=== PATIENT | female | born 1935 | race Caucasian/White ===

== ENCOUNTER 2016-09-29 08:26 | Outpatient (CLI) | payer OTHER ==
[2016-09-29] MEDS ORDERED: BARIUM SULFATE 135 ML SUSP.RECON (E-Z-HD) PO ONE (08:56)
== END 2016-09-29 18:19 | disposition home or self-care (01) ==
LOC: SRD 08:26
PROVIDERS: ATTEND Specialist
DX: R13.10 Dysphagia, unspecified (principal)
CPT/HCPCS: 74220-TC

== ENCOUNTER → 2016-10-04 | Outpatient (CLI) | payer OTHER ==
[~2016-10-04] MED LIST: ALEN10TA6 PO; AMOX-426 PO; CALC-1094 PO; CYAN100067 PO; L.RH1CAP PO; LEVO25TA7 PO; LIP10 PO; LORA-259 PO; VITD2000 PO
[2016-10-04 15:04] LABS: BASOPHILS # (AUTO) 0.1 K/uL (0.0-0.2); BASOPHILS % (AUTO) 0.7 % (0.0-2.0); EOSINOPHILS # (AUTO) 0.1 K/uL (0.0-0.4); EOSINOPHILS % (AUTO) 1.3 % (0.0-4.0); HEMATOCRIT 42.4 % (36-48); HEMOGLOBIN 14.1 g/dL (12.0-16.0); LYMPHOCYTES # (AUTO) 2.1 K/uL (1.0-5.5); LYMPHOCYTES % (AUTO) 24.6 % (20.5-51.5); MEAN CORPUSCULAR HEMOGLOBIN 32 pg (27-31); MEAN CORPUSCULAR HGB CONC 33 % (32-36); MEAN CORPUSCULAR VOLUME 96 fL (79.0-98.0); MONOCYTES # (AUTO) 0.6 K/uL (0.0-1.0); NEUTROPHILS # (AUTO) 5.7 K/uL (1.8-7.7); NEUTROPHILS % (AUTO) 66.4 % (40.0-70.0); PLATELET COUNT (AUTO) 222 K/uL (130-430); RED BLOOD CELL COUNT(AUTO) 4.41 MIL/uL (4.2-6.2); RED CELL DISTRIBUTION WIDTH 13.6 % (9.0-15.0); WHITE BLOOD COUNT (AUTO) 8.6 K/uL (4.8-10.8)
[2016-10-04 15:08] LABS: BILIRUBIN,URINE NEGATIVE (NEGATIVE); BLOOD, URINE NEGATIVE (NEGATIVE); CLARITY/URINE CLEAR (CLEAR); COLOR,URINE YELLOW (YELLOW); GLUCOSE,URINE NEGATIVE (NEGATIVE); KETONES,URINE TRACE (NEGATIVE); LEUKOCYTE ESTERASE ,URINE TRACE (NEGATIVE); NITRITE, URINE NEGATIVE (NEGATIVE); PH,URINE 5.5 (5.0-8.0); PROTEIN URINE NEGATIVE (NEGATIVE); UROBILINOGEN,URINE 0.2 (0.2-1.0)
[2016-10-04 15:13] LABS: ANION GAP 7 (5-15); CALCIUM 8.8 mg/dL (8.4-11.0); CHLORIDE 103 mmol/L (98-107); CREATININE 1.07 mg/dL (0.55-1.30); GLUCOSE 115 mg/dL (70-99); POTASSIUM 3.8 mmol/L (3.5-5.1); SODIUM SERUM 140 mmol/L (136-145); UREA NITROGEN, BLOOD 18 mg/dL (8-21)
[2016-10-04 15:55] LABS: RBC,URINE NONE SEEN /HPF (0-3)
[2016-10-04 15:56] LABS: BACTERIA,URINE FEW /HPF (None Seen); MUCUS,URINE 1+ /LPF (None Seen)
== END | disposition home or self-care (01) ==
LOC: UNDOADMIN 13:19 → SMU 13:19 → SLB 13:20 → EDSTATUS 10-11 15:24
PROVIDERS: ATTEND Orthopaedic Surgery
DX: Z01.818 Encounter for other preprocedural examination (principal); R05 Cough; I70.90 Unspecified atherosclerosis
CPT/HCPCS: 36415; 71020-TC; 80048; 81000-TC; 85025; 87081; 87086

== ENCOUNTER 2016-10-08 10:14 | Inpatient (IN) | payer OTHER ==
[~2016-10-08] VITALS: Ht 165.1 cm; Wt 49.4 kg
[2016-10-08 10:23] VITALS: BP 157/79; PULSE 89; RESP 16; TEMP 98.2; O2SAT 99
[2016-10-08] MEDS ORDERED: NACL 0.9% 1,000 ML IV ONE ×3 (10:25→12:30)
--- NOTE | 2016-10-08 10:26 | NUR ---
Pt report received from VICKY Guillen. Pt c/o vomiting since 17:00 yesterday. Pt also c/o Right hip pain ad is scheduled for sx on 10/11/16.
--- NOTE | 2016-10-08 10:26 | NUR ---
PLACED IN BED 4
[2016-10-08] MEDS ORDERED: PROCHLORPERAZINE EDISYLATE 10 MG/2 ML VIAL IVP ONE (10:30)
[2016-10-08] MEDS ORDERED: KETOROLAC TROMETHAMINE 30 MG VIAL IVP ONE (10:30)
[2016-10-08] MEDS ORDERED: ONDANSETRON HCL 4 MG/2 ML VIAL IVP ONE (10:30)
--- NOTE | 2016-10-08 10:30 | NUR ---
# 20 gauge angiocath placed to LAC. Use of asceptic technique. Opsite placed over site. Blood return noted. Blood for lab drawn from site. Flushed with 10 cc of normal saline. No evidence of infiltration noted. Patient tolerated well.
--- NOTE | 2016-10-08 10:35 | NUR ---
Dr. Solo at bedside to assess pt.
[2016-10-08 11:09] LABS: BASOPHILS # (AUTO) 0.4 K/uL (0.0-0.2); BASOPHILS % (AUTO) 1.9 % (0.0-2.0); HEMOGLOBIN 13.9 g/dL (12.0-16.0); LYMPHOCYTES # (AUTO) 0.7 K/uL (1.0-5.5); LYMPHOCYTES % (AUTO) 3.5 % (20.5-51.5); MEAN CORPUSCULAR HEMOGLOBIN 31 pg (27-31); MEAN CORPUSCULAR HGB CONC 33 % (32-36); MEAN CORPUSCULAR VOLUME 95 fL (79.0-98.0); MONOCYTES # (AUTO) 0.9 K/uL (0.0-1.0); MONOCYTES % (AUTO) 4.9 % (1.7-9.3); NEUTROPHILS # (AUTO) 16.6 K/uL (1.8-7.7); NEUTROPHILS % (AUTO) 89.7 % (40.0-70.0); PLATELET COUNT (AUTO) 176 K/uL (130-430); RED BLOOD CELL COUNT(AUTO) 4.44 MIL/uL (4.2-6.2); RED CELL DISTRIBUTION WIDTH 13.3 % (9.0-15.0); WHITE BLOOD COUNT (AUTO) 18.6 K/uL (4.8-10.8)
[2016-10-08 11:16] LABS: ANION GAP 7 (5-15); CALCIUM 8.5 mg/dL (8.4-11.0); CHLORIDE 95 mmol/L (98-107); CREATININE 0.97 mg/dL (0.55-1.30); GLUCOSE 172 mg/dL (70-99); POTASSIUM 4.4 mmol/L (3.5-5.1); SODIUM SERUM 129 mmol/L (136-145); UREA NITROGEN, BLOOD 18 mg/dL (8-21)
[2016-10-08 11:21] LABS: ALANINE AMINOTRANSFERASE 23 U/L (12-78); ALBUMIN 3.8 g/dL (3.4-4.8); AMYLASE 113 U/L (0-100); ASPARTATE AMINOTRANSFERASE 34 U/L (10-37); LIPASE 117 U/L (73-393); TOTAL BILIRUBIN 1.3 mg/dL (0.0-1.0); TOTAL PROTEIN, SERUM 7.5 g/dL (6.4-8.3)
[2016-10-08 11:35] LABS: INR 1.1 (0.8-1.2); PROTHROMBIN TIME 11.9 SECS (9.5-12.5)
[2016-10-08] MEDS ORDERED: cefTRIAXone 1 GM IVPB PREMIX 50 ML IV ONE (12:30)
--- NOTE | 2016-10-08 12:30 | NUR ---
PT. OUT TO CT [facility]
[2016-10-08 13:03] LABS: BILIRUBIN,URINE NEGATIVE (NEGATIVE); CLARITY/URINE CLEAR (CLEAR); COLOR,URINE YELLOW (YELLOW); GLUCOSE,URINE NEGATIVE (NEGATIVE); KETONES,URINE TRACE (NEGATIVE); LEUKOCYTE ESTERASE ,URINE NEGATIVE (NEGATIVE); NITRITE, URINE NEGATIVE (NEGATIVE); PROTEIN URINE TRACE (NEGATIVE); UROBILINOGEN,URINE 0.2 (0.2-1.0)
[2016-10-08 13:06] LABS: BLOOD, URINE TRACE (NEGATIVE)
[2016-10-08 13:11] LABS: BACTERIA,URINE FEW /HPF (None Seen); RBC,URINE 0-3 /HPF (0-3); WBC,URINE 0-3 /HPF (0-3)
[2016-10-08 13:12] LABS: MUCUS,URINE 1+ /LPF (None Seen)
[2016-10-08] MEDS ORDERED: ONDANSETRON HCL 4 MG/2 ML VIAL IVP PRN (13:15)
[2016-10-08] MEDS ORDERED: ACETAMINOPHEN 325 MG TABLET PO PRN (13:15)
--- NOTE | 2016-10-08 13:15 | NUR ---
Patient will be admitted to care of DR. MONTEZ. Admitted to TELE unit. Will go to room 111A. Belongings list completed. Summary report printed. Report given to MONSTER PERRY.
--- NOTE | 2016-10-08 13:37 | NUR ---
ADMISSION NOTE Received patient from ER via gurney. Patient admitted with diagnosis of Sepsis. Patient is awake, alert, oriented X 4. VSS Patient oriented to hospital room, call light, toileting, pain management and safety-teach back done. Patient informed that Heidi will be nurse and that their room number is 111A. Personal belongings checked and Belongings List documented. Call light within reach.
[2016-10-08 13:42] VITALS: BP 130/55; PULSE 74; TEMP 98.4; O2SAT 100
--- NOTE | 2016-10-08 14:30 | NUR ---
RESTING IN BED AT THIS TIME. DENIES ANY PAIN OR DISCOMFORT. NO NAUSEA VOMITING NOTED.
[2016-10-08] MEDS ORDERED: ALEN10TA6 PO (14:49)
[2016-10-08] MEDS ORDERED: CALC-1094 PO (14:49)
[2016-10-08] MEDS ORDERED: VITD2000 PO (14:49)
[2016-10-08] MEDS ORDERED: LIP10 PO (14:49)
[2016-10-08] MEDS ORDERED: LEVO25TA7 PO (14:49)
[2016-10-08] MEDS ORDERED: CYAN100067 PO (14:49)
[2016-10-08] MEDS ORDERED: LORA-259 PO (14:49)
--- NOTE | 2016-10-08 15:11 | NUR ---
NS SECOND BOLUS OF NS RUNNING AT THIS TIME.
--- NOTE | 2016-10-08 15:54 | NUR ---
1430 Patient awake ,alert and oriented ambulatory. Patient noted to have hoarse voice from vomiting at home.Patient admitted for Vomiting and reaction to Tramadol and r/o SEPSIS.Iv on the left forearm infusing NS at 100 cc/hour. Site intact, no redness.
--- NOTE | 2016-10-08 16:00 | NUR ---
Patient assisted to the BR .Instructed to call the nurse when she need to assistance to the Bathroom.
[2016-10-08] MEDS: LEVOFLOXACIN 500 MG/D5W 100 ML IV SCH (16:03)
[2016-10-08] MEDS: NACL 0.9% 1,000 ML IV SCH ×2 (16:10→23:36)
[2016-10-08 16:50] VITALS: BP 131/62; PULSE 75; RESP 16; TEMP 98; O2SAT 94
--- NOTE | 2016-10-08 18:47 | NUR ---
Patient stable ,denies any discomfort at this time.
[2016-10-08] MEDS ORDERED: LORazepam 1 MG TABLET PO SCH (19:45)
--- NOTE | 2016-10-08 19:50 | NUR ---
PM SHIFT ASSESSMENT Received patient in bed, aox4, vital signs stable. Patient denies any hip pain at this time, denies any nausea or vomiting. States she lost her voice due to vomiting all yesterday. IV line to left ac intact and patent, IVF of NS infusing at 100 cc/hr. Plan of care discussed with patient, verbalized understanding, compliant, educated on fall and safety precautions, safety measures in place, oriented to use call light for nurse assistance, will continue to monitor.
[2016-10-08 20:00] VITALS: BP 136/63; PULSE 83; RESP 20; TEMP 99; O2SAT 95
[2016-10-08] MEDS: LACTOBACILLUS RHAMNOSUS GG 1 CAP CAPSULE PO SCH (20:35)
[2016-10-08] MEDS: DOCUSATE SODIUM 250 MG CAPSULE PO SCH (20:35)
[2016-10-08] MEDS: LACTULOSE 20 GM/30 ML UDC PO SCH (20:41)
[2016-10-08] MEDS ORDERED: FAMOTIDINE PF 20 MG/2 ML VIAL IVP SCH (21:00)
[2016-10-08] MEDS: LORazepam 1 MG TABLET PO SCH ×2 (21:00→21:53)
--- NOTE | 2016-10-08 21:00 | NUR ---
MD Dr. White made rounds, new orders given, will carry out.
--- NOTE | 2016-10-08 21:30 | NUR ---
RN ROUNDS Patient awake, due medications administered, IVF infusing. Ambulated to bathroom, steady gait noted, reoriented to use call light for nurse assistance, call light within reach, will monitor.
--- NOTE | 2016-10-08 22:02 | NUR ---
RN ROUNDS Patient awake, denies any pain at this time, Ativan 1 mg po given, educated on fall precautions, patient verbalized understanding, bed alarm on, safety measures in place, will continue to monitor.
--- NOTE | 2016-10-08 23:56 | NUR ---
RN ROUNDS Patient asleep, respirations even and unlabored, vitals stable. Bed alarm on, safety measures in place, call light within reach, will continue to monitor.
[2016-10-09 00:30] VITALS: BP 99/41; PULSE 77; RESP 16; TEMP 97.8; O2SAT 98
--- NOTE | 2016-10-09 02:09 | NUR ---
RN ROUNDS Patient asleep, respirations even and unlabored, IVF ongoing, safety measures in place, call light within reach, will continue to monitor.
--- NOTE | 2016-10-09 04:04 | NUR ---
RN ROUNDS Patient continues to sleep, respirations even and unlabored, remains on room air. Vitals stable. safety measures in place, call light within reach, will continue to monitor.
[2016-10-09 04:24] VITALS: BP 106/48; PULSE 78; RESP 17; TEMP 98; O2SAT 98
[2016-10-09] MEDS: LEVOTHYROXINE SODIUM 0.025 MG TABLET PO SCH (06:12)
--- NOTE | 2016-10-09 06:34 | NUR ---
RN ROUNDS Patient awake and in no distress, ambulated to bathroom with standby assistance, denies any pain at this time. Needs attended to. Patient refusing to wear SCDs. Bed alarm on, safety measures in place, will continue to monitor until report given to am nurse.
[2016-10-09 07:51] VITALS: BP 148/75; PULSE 64; RESP 18; TEMP 99; O2SAT 96
[2016-10-09] MEDS: DOCUSATE SODIUM 250 MG CAPSULE PO SCH ×2 (08:11→21:10)
[2016-10-09] MEDS: ATORVASTATIN 10 MG TABLET PO SCH (08:11)
[2016-10-09] MEDS: LACTOBACILLUS RHAMNOSUS GG 1 CAP CAPSULE PO SCH ×2 (08:11→21:10)
[2016-10-09] MEDS: CYANOCOBALAMIN 1000 mCg TABLET PO SCH (08:11)
[2016-10-09] MEDS: LACTULOSE 20 GM/30 ML UDC PO SCH ×3 (08:12→21:00)
--- NOTE | 2016-10-09 08:20 | NUR ---
Initial note and IV insertion A/O x 4, no SOB, no chest pain, c/o mild pain (2/10) at R hip, but refused to take pain med. Skin warm to touch, no skin breakdown. IV at L AC infiltrated, started a new IV at R hand with #22 x 1 attempt, good blood return, DC old IV from L AC, IV cath intact, patient tolerated whole procedure well. Continue NS @ 100 ml/hr via IV at R hand. Clear lungs sounds all lobes. Some dry cough without sputum. Active bowel sounds present all quadrants. +2 redial and pedal pulses without edema noted. Call light within reach, education provided, reenforce patient to use call light for any concern and question, or going to bathroom. Will continue to monitor patient. Addendum: 10/09/16 at 0948 by Mary Bowman RN pt refused to have scd's in place, educated pt on importance of scd use to prevent dvt, pt verbalized understanding but continues to refuse, charge nurse aware.
[2016-10-09] MEDS: CHOLECALCIFEROL (VITAMIN D3) 2,000 UNIT TABLET PO SCH (08:33)
[2016-10-09] MEDS: NACL 0.9% 1,000 ML IV SCH ×2 (09:59→21:07)
--- NOTE | 2016-10-09 10:15 | NUR ---
Round A/O x 4, no SOB, no chest pain, c/o mild pain (2/10) at R hip, but refused to take pain med. Skin warm to touch, no skin breakdown. IV at R hand with #22, patent, free of infiltration or infection. Continue NS @ 100 ml/hr via IV at R hand. Clear lungs sounds all lobes. Some dry cough without sputum. Active bowel sounds present all quadrants. No edema noted. Need one person assisted for ambulation. Call light within reach, education provided, reenforce patient to use call light for any concern and question, or going to bathroom. Will continue to monitor patient.
[2016-10-09 11:47] VITALS: BP 147/77; PULSE 78; RESP 19; TEMP 96.6; O2SAT 96
--- NOTE | 2016-10-09 12:15 | NUR ---
Round A/O x 4, no SOB, no chest pain, c/o mild pain (2/10) at R hip, still refused to take pain med. Skin warm to touch, no skin breakdown. IV at R hand with #22, patent, free of infiltration or infection. Continue NS @ 100 ml/hr via IV at R hand. Clear lungs sounds all lobes. No cough noted. Active bowel sounds present all quadrants. No edema noted. Need one person assisted for ambulation. Call light within reach, education provided, reenforce patient to use call light for any concern and question, or going to bathroom. Will continue to monitor patient.
[2016-10-09] MEDS: cefTRIAXone 1 GM IVPB PREMIX 50 ML IV SCH (12:40)
[2016-10-09] MEDS: LEVOFLOXACIN 500 MG/D5W 100 ML IV SCH (13:43)
--- NOTE | 2016-10-09 14:15 | NUR ---
Round A/O x 4, no SOB, no chest pain, c/o mild pain (2/10) at R hip, still refused to take pain med. Skin warm to touch, no skin breakdown. IV at R hand with #22, patent, free of infiltration or infection. Continue NS @ 100 ml/hr via IV at R hand. Rocephin IV was completed and now running Levaquin. Clear lungs sounds all lobes. No cough noted. Active bowel sounds present all quadrants. No edema noted. Need one person assisted for ambulation. Small BM noted. Call light within reach, education provided, reenforce patient to use call light for any concern and question, or going to bathroom. Will continue to monitor patient.
[2016-10-09 15:56] VITALS: BP 147/80; PULSE 86; RESP 19; TEMP 98.8; O2SAT 94
--- NOTE | 2016-10-09 18:15 | NUR ---
Closing note A/O x 4, no SOB, no chest pain, c/o mild pain (2/10) at R hip, still refused to take pain med. Skin warm to touch, no skin breakdown. IV at R hand with #22, patent, free of infiltration or infection. Continue NS @ 100 ml/hr via IV at R hand. Clear lungs sounds all lobes. No cough noted. Active bowel sounds present all quadrants. No edema noted. Frequent urination. Need one person assisted for ambulation. Small BM x 1 today. Call light within reach, education provided, reenforce patient to use call light for any concern and question, or going to bathroom. Will continue to monitor patient.
--- NOTE | 2016-10-09 19:20 | NUR ---
INITIAL NOTES: PT IS ALERT, AWAKE, ORIENTED X 4. WATCHING TV. NO PAIN. NO DISTRESS. VITAL SIGN WITH IN NORMAL LIMIT. IVF INFUSING WELL TO RIGHT FOREARM- INFUSING WELL. INSTRUCTED PT TO CALL FOR ASSISTANCE. CALL LIGHT IN REACH, SIDE RAILS UP. WILL MONITOR. Addendum: 10/09/16 at 2106 by Constantino Addison RN right hand iv site gauge 22- no infiltration
[2016-10-09 19:50] LABS: BASOPHILS % (AUTO) 0.5 % (0.0-2.0); EOSINOPHILS # (AUTO) 0.2 K/uL (0.0-0.4); EOSINOPHILS % (AUTO) 2.3 % (0.0-4.0); HEMATOCRIT 33.5 % (36-48); HEMOGLOBIN 11.2 g/dL (12.0-16.0); LYMPHOCYTES # (AUTO) 1.3 K/uL (1.0-5.5); LYMPHOCYTES % (AUTO) 14.2 % (20.5-51.5); MEAN CORPUSCULAR HEMOGLOBIN 32 pg (27-31); MEAN CORPUSCULAR HGB CONC 33 % (32-36); MEAN CORPUSCULAR VOLUME 96 fL (79.0-98.0); MONOCYTES # (AUTO) 0.7 K/uL (0.0-1.0); MONOCYTES % (AUTO) 8.1 % (1.7-9.3); NEUTROPHILS # (AUTO) 6.9 K/uL (1.8-7.7); NEUTROPHILS % (AUTO) 74.9 % (40.0-70.0); PLATELET COUNT (AUTO) 151 K/uL (130-430); RED BLOOD CELL COUNT(AUTO) 3.49 MIL/uL (4.2-6.2); WHITE BLOOD COUNT (AUTO) 9.1 K/uL (4.8-10.8)
[2016-10-09 19:54] LABS: ANION GAP 4 (5-15); CALCIUM 7.1 mg/dL (8.4-11.0); CHLORIDE 114 mmol/L (98-107); CREATININE 0.77 mg/dL (0.55-1.30); GLUCOSE 121 mg/dL (70-99); POTASSIUM 3.1 mmol/L (3.5-5.1); SODIUM SERUM 145 mmol/L (136-145); UREA NITROGEN, BLOOD 9 mg/dL (8-21)
[2016-10-09 20:10] VITALS: BP 162/80; PULSE 78; RESP 18; TEMP 97.5; O2SAT 97
--- NOTE | 2016-10-09 20:27 | NUR ---
received call from dr. pan mas is aware of consult. md will see the pt tomorrow.
[2016-10-09] MEDS: PANTOPRAZOLE SODIUM 40 MG/VIAL (PROTONIX) IVP SCH (21:10)
[2016-10-09] MEDS: LORazepam 1 MG TABLET PO SCH (22:12)
--- NOTE | 2016-10-09 22:17 | NUR ---
ROUND NOTES: PT IS DONE WITH WATCHING TV. ASSISTED TO BATHROOM. ATIVAN PO GIVEN. INSTRUCTED TO CALL. CALL LIGHT IN REACH. WILL MONITOR.
--- NOTE | 2016-10-10 | NUR ---
round notes: pt is sleeping. comfortable. no pain. not distress. no sob. call light in reach. will monitor.
[2016-10-10 00:15] VITALS: BP 145/71; PULSE 76; RESP 15; TEMP 97.9; O2SAT 96
--- NOTE | 2016-10-10 02:00 | NUR ---
round notes: pt is sleeping. comfortable. no pain no sob. call light in reach. will monitor.
--- NOTE | 2016-10-10 02:49 | NUR ---
PAGED PAGED MELIDA CARIAS ZOUHAIR AT [phone] SPOKE WITH KIEL.
--- NOTE | 2016-10-10 03:18 | NUR ---
2ND PAGE OUT TO HELDER PIZARRO AT [phone] SPOKE WITH KIEL.
--- NOTE | 2016-10-10 03:24 | NUR ---
spoke to dr. torres- report potassium level 3.1 and calcium 7.1. md order 40 meq k-dur x one dose. report also to md pt sbp 162. md order clonidine 0.1 mg q4hr prn for sbp > 160.
[2016-10-10] MEDS ORDERED: POTASSIUM CHLORIDE 20 MEQ TAB.PRT.SR PO ONE (03:30)
[2016-10-10] MEDS ORDERED: cloNIDine HCL 0.1 MG TABLET PO PRN (03:30)
--- NOTE | 2016-10-10 04:10 | NUR ---
pt iv site start to leak. start new iv site at left fore arm gauge 20- good blood return. done aseptically. pt tolerate well. needs attended. call light in reach. will monitor.
[2016-10-10 04:17] VITALS: BP 145/72; PULSE 87; RESP 15; TEMP 98.7; O2SAT 94
--- NOTE | 2016-10-10 06:00 | NUR ---
round notes: assisted pt to br. back to bed. steady gait. no complain of pain. am medication given. call light in reach. will monitor.
[2016-10-10] MEDS: LEVOTHYROXINE SODIUM 0.025 MG TABLET PO SCH (06:09)
[2016-10-10] MEDS: NACL 0.9% 1,000 ML IV SCH ×2 (06:09→16:48)
--- NOTE | 2016-10-10 06:55 | NUR ---
closing: pt is resting. no distress. no nausea and vomiting the whole shift. no complain of pain. ivf infusing well. stable. call light in reach, side rails up. will given bedside report to am nurse.
[2016-10-10 07:52] LABS: BASOPHILS % (AUTO) 0.6 % (0.0-2.0); EOSINOPHILS # (AUTO) 0.3 K/uL (0.0-0.4); EOSINOPHILS % (AUTO) 3.9 % (0.0-4.0); HEMATOCRIT 33.2 % (36-48); LYMPHOCYTES # (AUTO) 1.4 K/uL (1.0-5.5); LYMPHOCYTES % (AUTO) 18.5 % (20.5-51.5); MEAN CORPUSCULAR HEMOGLOBIN 32 pg (27-31); MEAN CORPUSCULAR HGB CONC 33 % (32-36); MEAN CORPUSCULAR VOLUME 96 fL (79.0-98.0); MONOCYTES # (AUTO) 0.6 K/uL (0.0-1.0); MONOCYTES % (AUTO) 8.7 % (1.7-9.3); NEUTROPHILS # (AUTO) 5.1 K/uL (1.8-7.7); NEUTROPHILS % (AUTO) 68.3 % (40.0-70.0); PLATELET COUNT (AUTO) 140 K/uL (130-430); RED BLOOD CELL COUNT(AUTO) 3.45 MIL/uL (4.2-6.2); RED CELL DISTRIBUTION WIDTH 13.5 % (9.0-15.0); WHITE BLOOD COUNT (AUTO) 7.4 K/uL (4.8-10.8)
[2016-10-10 08:00] VITALS: BP 158/81; PULSE 77; RESP 17; TEMP 97.4; O2SAT 97
--- NOTE | 2016-10-10 08:00 | NUR ---
Initial note A/O x 4, no SOB, no chest pain, denied pain at this time. Skin warm to touch, IV #20 at L FA, patent and free of infection or infiltration. Continue receiving NS @ 100 ml/hr. Breakfast provided. Clear lung sounds and positive bowel sounds all quadrants. +2 radial and pedal pulses, no edema noted. Call light within reach, risk for fall, frequent urination, one person assisted needed for ambulation/transferring. Education provided. Will continue to monitor patient.
[2016-10-10 08:28] LABS: ALANINE AMINOTRANSFERASE 26 U/L (12-78); ALBUMIN 2.7 g/dL (3.4-4.8); ANION GAP 7 (5-15); ASPARTATE AMINOTRANSFERASE 35 U/L (10-37); CALCIUM 7.4 mg/dL (8.4-11.0); CHLORIDE 112 mmol/L (98-107); CREATININE 0.76 mg/dL (0.55-1.30); GLUCOSE 88 mg/dL (70-99); POTASSIUM 3.8 mmol/L (3.5-5.1); SODIUM SERUM 144 mmol/L (136-145); TOTAL BILIRUBIN 0.6 mg/dL (0.0-1.0); TOTAL PROTEIN, SERUM 5.6 g/dL (6.4-8.3); UREA NITROGEN, BLOOD 8 mg/dL (8-21)
[2016-10-10] MEDS: LACTULOSE 20 GM/30 ML UDC PO SCH ×3 (09:00→22:05)
[2016-10-10] MEDS: PANTOPRAZOLE SODIUM 40 MG/VIAL (PROTONIX) IVP SCH ×2 (09:04→21:18)
--- NOTE | 2016-10-10 09:07 | NUR ---
MUCUS Pt c/o having a lot of secretions stuck in her throat, pt vomited x1, thick, white secretions, administered prn zofran as ordered. Dr White paged to notify him and see if he will give any new orders, awaiting call back. Addendum: 10/10/16 at 7405 by Mary Bowman RN Dr White gave new orders and made aware of patients condition.
--- NOTE | 2016-10-10 09:26 | NUR ---
Medication Reassessment Pt no longer feels nauseas, no vomiting noted, pt in stable condition, no s/s of distress or sob noted, pt has no c/o pain at this time, will continue to monitor pt for any changes.
[2016-10-10] MEDS ORDERED: METOCLOPRAMIDE HCL 10 MG/2 ML VIAL IVP PRN (09:30)
--- NOTE | 2016-10-10 09:45 | NUR ---
CONSULT SPOKE WITH JOHN FOR CDR. CURRY CAMILO ABOUT THROAT PAIN.
--- NOTE | 2016-10-10 10:00 | NUR ---
Round A/O x 4, no SOB, no chest pain, denied pain at this time. Poor appetite of breakfast to due vomiting earlier. Denied N/V at this time. was able to eat some Jell-o. Skin warm to touch, IV #20 at L FA, patent and free of infection or infiltration. Continue receiving NS @ 100 ml/hr. Clear lung sounds and positive bowel sounds all quadrants. +2 radial and pedal pulses, no edema noted. Call light within reach, risk for fall, frequent urination, needed urination every 30-60 minutes, one person assisted needed for ambulation/transferring. Education provided. Will continue to monitor patient.
[2016-10-10] MEDS ORDERED: IOHEXOL 100 ML IV ONE (11:22)
[2016-10-10] MEDS: ATORVASTATIN 10 MG TABLET PO SCH (11:23)
[2016-10-10] MEDS: LACTOBACILLUS RHAMNOSUS GG 1 CAP CAPSULE PO SCH ×2 (11:23→22:06)
[2016-10-10] MEDS: CHOLECALCIFEROL (VITAMIN D3) 2,000 UNIT TABLET PO SCH (11:24)
[2016-10-10] MEDS: DOCUSATE SODIUM 250 MG CAPSULE PO SCH ×2 (11:24→22:05)
[2016-10-10] MEDS: CYANOCOBALAMIN 1000 mCg TABLET PO SCH (11:24)
[2016-10-10 12:03] VITALS: BP 148/67; PULSE 81; RESP 18; TEMP 98.7; O2SAT 96
[2016-10-10 12:12] VITALS: Ht 165.1 cm; Wt 49.4 kg
[2016-10-10] MEDS: cefTRIAXone 1 GM IVPB PREMIX 50 ML IV SCH (12:20)
--- NOTE | 2016-10-10 12:20 | NUR ---
Round A/O x 4, no SOB, no chest pain, denied pain at this time. Fair appetite of lunch. Denied N/V at this time. Skin warm to touch, IV #20 at L FA, patent and free of infection or infiltration. Continue receiving NS @ 100 ml/hr. IV Rocephin given. No ASE. Clear lung sounds and positive bowel sounds all quadrants. +2 radial and pedal pulses, no edema noted. Call light within reach, risk for fall, frequent urination, needed urination every 30-60 minutes, one person assisted needed for ambulation/transferring. Education provided. Will continue to monitor patient.
[2016-10-10] MEDS: LEVOFLOXACIN 500 MG/D5W 100 ML IV SCH (13:35)
--- NOTE | 2016-10-10 14:20 | NUR ---
Round A/O x 4, no SOB, no chest pain, denied pain at this time. Denied N/V at this time. Skin warm to touch, IV #20 at L FA, patent and free of infection or infiltration. Continue receiving NS @ 100 ml/hr. IV Levaquin given. No ASE. Clear lung sounds and positive bowel sounds all quadrants. +2 radial and pedal pulses, no edema noted. Call light within reach, risk for fall, frequent urination, needed urination every 30-60 minutes, one person assisted needed for ambulation/transferring. Education provided. Will continue to monitor patient.
[2016-10-10 16:00] VITALS: BP 162/79; PULSE 96; RESP 18; TEMP 98.4; O2SAT 97
--- NOTE | 2016-10-10 16:00 | NUR ---
Round and IV reinsertion A/O x 4, no SOB, no chest pain, denied pain at this time. Denied N/V at this time. Skin warm to touch, noted IV at L FA infiltrated. Started a new IV at L FA with #20 x 2 attempts, DC old IV, IV catheter intact. Patient tolerated whole procedure well. Continue receiving NS @ 100 ml/hr. Clear lung sounds and positive bowel sounds all quadrants. +2 radial and pedal pulses, no edema noted. Call light within reach, risk for fall, frequent urination, needed urination every 30-60 minutes, one person assisted needed for ambulation/transferring. Education provided. Will continue to monitor patient.
--- NOTE | 2016-10-10 16:43 | NUR ---
CONSULT SWALLOW TIMOTHY LEFT FOR LYSSA (ST) [phone] @0099
--- NOTE | 2016-10-10 16:46 | NUR ---
CONSULT CONSULT ORDERED WITH DR. HOWARD FOR LARGE GOITER. SPOKE WITH
--- NOTE | 2016-10-10 17:26 | NUR ---
CONSULT PAGE TO CANCELL CONSULT.
--- NOTE | 2016-10-10 17:36 | NUR ---
CONSULT CALLED FOR CONSULT FOR DR. ECHEVERRIA FOR LARGE GOITER. SPOKE WITH ADARSH
--- NOTE | 2016-10-10 18:20 | NUR ---
Closing note A/O x 4, no SOB, no chest pain, c/o mild pain at R hip/back 2/10 at this time, but refused any pain med. Denied N/V at this time. Poor-fair appetite of dinner. Skin warm to touch, IV #20 at L FA, patent and free of infection or infiltration. Continue receiving NS @ 100 ml/hr. Clear lung sounds and positive bowel sounds all quadrants. +2 radial and pedal pulses, no edema noted. Call light within reach, risk for fall, frequent urination, needed urination every 30-60 minutes, one person assisted needed for ambulation/transferring. Education provided. Will continue to monitor patient.
[2016-10-10] MEDS: PIPERACILLIN/TAZO 3.375/DEX-IS 50 ML IV SCH ×2 (18:22→23:46)
[2016-10-10 20:00] VITALS: BP 148/71; PULSE 91; RESP 18; TEMP 98.1; O2SAT 96
--- NOTE | 2016-10-10 20:00 | NUR ---
Rounds Received patient lying in bed resting, denies of any pain, no acute distress noted. IV site checked intact and patent, IV fluid infusing well. Instructed patient to call nurse when getting out of bed, call light within reach.
--- NOTE | 2016-10-10 22:00 | NUR ---
Rounds Patient ambulate to the bathroom and back to bed with standby assistance, steady gait noted. patient c/o pain when walking but able to tolerate it.
[2016-10-10] MEDS: LORazepam 1 MG TABLET PO SCH (22:05)
--- NOTE | 2016-10-11 00:10 | NUR ---
Rounds Patient resting quietly, no acte distress noted. call light within reach.
[2016-10-11 00:38] VITALS: BP 139/67; PULSE 60; RESP 17; TEMP 98; O2SAT 95
--- NOTE | 2016-10-11 02:10 | NUR ---
Rounds Patient resting quietly, no s/s of any pain, no acute distress noted. call light within reach.
[2016-10-11] MEDS: NACL 0.9% 1,000 ML IV SCH ×2 (02:31→12:43)
[2016-10-11 03:22] VITALS: BP 133/64; PULSE 63; RESP 17; TEMP 97.1; O2SAT 94
--- NOTE | 2016-10-11 04:10 | NUR ---
Rounds Patient awake ambulate to the bathroom and back to bed with standby assistance, steady gait noted. patient c/o pain when walking but able to tolerate it. call light within reach.
[2016-10-11] MEDS: PIPERACILLIN/TAZO 3.375/DEX-IS 50 ML IV SCH ×2 (05:29→12:42)
[2016-10-11] MEDS: LEVOTHYROXINE SODIUM 0.025 MG TABLET PO SCH (06:24)
--- NOTE | 2016-10-11 06:54 | NUR ---
Closing notes Patient slept most of the night, no other changes noted on patient current condition.
--- NOTE | 2016-10-11 07:45 | NUR ---
AM ROUNDS PT SITTING UP IN BED...DENIES PAIN AT THIS TIME...PT A/O X4..IVF INFUSING WELL TO LFA...PT ON PUREED AND THICK LIQUID DIET TOLERATING WELL...CALL LIGHT/PHOPNE W/IN REACH...WILL CONT TO MONITOR
[2016-10-11 07:53] LABS: BASOPHILS # (AUTO) 0.1 K/uL (0.0-0.2); BASOPHILS % (AUTO) 0.8 % (0.0-2.0); EOSINOPHILS # (AUTO) 0.6 K/uL (0.0-0.4); EOSINOPHILS % (AUTO) 7.7 % (0.0-4.0); HEMATOCRIT 33.4 % (36-48); LYMPHOCYTES # (AUTO) 1.5 K/uL (1.0-5.5); LYMPHOCYTES % (AUTO) 20.6 % (20.5-51.5); MEAN CORPUSCULAR HEMOGLOBIN 32 pg (27-31); MEAN CORPUSCULAR HGB CONC 33 % (32-36); MEAN CORPUSCULAR VOLUME 96 fL (79.0-98.0); MONOCYTES # (AUTO) 0.6 K/uL (0.0-1.0); MONOCYTES % (AUTO) 8.2 % (1.7-9.3); NEUTROPHILS # (AUTO) 4.7 K/uL (1.8-7.7); NEUTROPHILS % (AUTO) 62.7 % (40.0-70.0); PLATELET COUNT (AUTO) 151 K/uL (130-430); RED BLOOD CELL COUNT(AUTO) 3.47 MIL/uL (4.2-6.2); RED CELL DISTRIBUTION WIDTH 13.7 % (9.0-15.0); WHITE BLOOD COUNT (AUTO) 7.5 K/uL (4.8-10.8)
[2016-10-11] MEDS: PANTOPRAZOLE SODIUM 40 MG/VIAL (PROTONIX) IVP SCH (08:25)
[2016-10-11 08:30] VITALS: BP 135/75; PULSE 81; RESP 20; TEMP 98.4; O2SAT 96
[2016-10-11] MEDS: LACTULOSE 20 GM/30 ML UDC PO SCH (09:40)
[2016-10-11] MEDS: CHOLECALCIFEROL (VITAMIN D3) 2,000 UNIT TABLET PO SCH (09:41)
[2016-10-11] MEDS: CYANOCOBALAMIN 1000 mCg TABLET PO SCH (09:41)
[2016-10-11] MEDS: LACTOBACILLUS RHAMNOSUS GG 1 CAP CAPSULE PO SCH (09:41)
[2016-10-11] MEDS: ATORVASTATIN 10 MG TABLET PO SCH (09:41)
[2016-10-11] MEDS: DOCUSATE SODIUM 250 MG CAPSULE PO SCH (09:41)
--- NOTE | 2016-10-11 10:00 | NUR ---
PT AMBULATED TO RESTROOM W/STEADY GAIT AND STAND BY ASSISTANCE
[2016-10-11 10:08] LABS: ALANINE AMINOTRANSFERASE 26 U/L (12-78); ALBUMIN 2.5 g/dL (3.4-4.8); ANION GAP 5 (5-15); ASPARTATE AMINOTRANSFERASE 30 U/L (10-37); CALCIUM 7.6 mg/dL (8.4-11.0); CHLORIDE 112 mmol/L (98-107); CREATININE 0.95 mg/dL (0.55-1.30); GLUCOSE 96 mg/dL (70-99); POTASSIUM 3.8 mmol/L (3.5-5.1); SODIUM SERUM 143 mmol/L (136-145); TOTAL BILIRUBIN 0.8 mg/dL (0.0-1.0); TOTAL PROTEIN, SERUM 5.4 g/dL (6.4-8.3); UREA NITROGEN, BLOOD 8 mg/dL (8-21)
--- NOTE | 2016-10-11 11:25 | NUR ---
S.T. SWALLOW EVAL ATTEMPTED. PT NPO FOR ABDOMINAL ULTRASOUND. SPOKE W/ NURSE ISRAEL WHO CALLED MAINTENANCE SPECIALIST. CONFIRMED THAT PT IS NPO FOR PROCEDURE THIS AFTERNOON. S.T. WILL FOLLOW. PT AWARE.
--- NOTE | 2016-10-11 11:30 | NUR ---
PT AWARE OF NPO STATUS FOR ABDOMINAL U/S
[2016-10-11 12:00] VITALS: BP 155/97; PULSE 63; RESP 21; TEMP 98; O2SAT 97
--- NOTE | 2016-10-11 12:06 | NUR ---
VICKY ANDERSON TO ASSUME CARE...REPORT GIVEN
--- NOTE | 2016-10-11 12:13 | NUR ---
INITIAL NOTE RECEIVED REPORT FROM ROSALIO WOOD. PT RESTING, FAMILY AT BED SIDE, ALERT AND ORIENTED X4, NO S/S OF DISTRESS OR COMPLAIN TO PAIN, PT IS CURRENTLY NPO DUE TO PENDING PROCEDURE, IV NOTED TO LFA INFUSING NORMAL SALINE AT 100ML/HR, SITE, PATENT AN INTACT, NO S/S OF INFILTRATION NOTED, SAFETY MEASURES IN PLACE, BED IN LOW POSITION AND LOCKED, CALL LIGHT WITHIN REACH, WILL FOLLOW UP.
--- NOTE | 2016-10-11 14:00 | NUR ---
ROUNDS PT ASSISTED TO RESTROOM, STEADY GAIT NOTED, NO S/S OF DISTRESS OR COMPLAINT OF PAIN, PT RETURNED TO BED, NEEDS ATTENDED TO, SAFETY MEAURES IN PLACE, CALL LIGHT WITHIN REACH.
[2016-10-11 16:00] VITALS: BP 164/107; PULSE 85; RESP 21; TEMP 99.1; O2SAT 98
--- NOTE | 2016-10-11 16:07 | NUR ---
Elevated blood pressure, administered PRN blood pressure medication with a sip of water per radiology. Pt ambulated with assist to restroom, steady gait noted. returned to bed, needs attended to, call light placed with in reach, will continue to monitor
--- NOTE | 2016-10-11 17:30 | NUR ---
ROUNDS PT ASSISTED TO RESTROOM, STEADY GAIT NOTED, NO S/S OF DISTRESS OR COMPLAINT OF PAIN, PT RETURNED TO BED, SAFETY MEASURES IN PLACE, CALL LIGHT WITHIN REACH, WILL FOLLOW UP.
--- NOTE | 2016-10-11 19:00 | NUR ---
CLOSING NOTE PT SITTING IN BED, FAMILY AT BEDSIDE, MEAL TRAY SET UP, PT TOLERATING FOOD WELL, NO S/S OF DISTRESS OR PAIN NOTED, IV TO LFA PATENT, ALL NEEDS ATTENDED TO THROUGHOUT SHIFT, SAFETY MEASURES MAINTAINED, BED IN LOW POSITION AND LOCKED, CALL LIGHT WITHIN REACH, DISCHARGE ORDER NOTED WILL ENDORSE TO FOLLOWING SHIFT.
[2016-10-11 19:53] VITALS: BP 129/84; PULSE 98; RESP 18; TEMP 98.1; O2SAT 98
[2016-10-11] MEDS ORDERED: AMOX-426 PO (20:08)
[2016-10-11] MEDS ORDERED: L.RH1CAP PO (20:09)
--- NOTE | 2016-10-11 20:16 | NUR ---
PAGED PAGED HELDER BRITTON AT [phone] SPOKE WITH MATT.
--- NOTE | 2016-10-11 20:44 | NUR ---
TRANSITIONAL/DISCHARGE CARE TO HOME Patient given medication reconciliation form and transitional D/C instructions. Exit Care provided. Patient verbalized understanding. MD discussed with patient the results and treatment provided. Ambulatory with steady gait for discharge to home. Patient in stable condition, ID band removed. IV catheter to left f/a removed, intact and dressing applied, no active bleeding. Rx of Augmentin and Probiotic given; pt.'s preferred pharmacy is [facility], I called and they were closed at 1830pm. I instructed pt. to bring written prescription and to continue all home medications per Dr. White. Pt. able to verbalize instructions and return demonstration. Patient educated on pain management. Pt. states she is not having any pain at this moment. All belongings sent with patient. Pt. transferred via wheelchair by KARINA Avalos. Son, Cristopher Carter will be driving pt. home via private automobile.
--- NOTE | 2016-10-13 10:41 | NUR ---
Case mgt: F/U call:I called Ms. Carter today at home. She was very pleased with her care here. Her only negative comment was that nursing staff delayed coming in to assist her to the bathroom, but this only happened a couple of times and not on any particular shift. I mentioned her care transition instructions for home and she said she did receive those and doesnt have any questions. She is waiting to hear from the doctors office when her hip surgery will be rescheduled with Dr. Rust. Her son is staying a couple more days then returning home.
[2016-10-14] MEDS ORDERED: ALENDRONATE SODIUM 10 MG TABLET (FOSAMAX) PO SCH (06:00)
--- NOTE | 2016-10-16 15:09 | NUR ---
Discharge Follow Up Phone Call CENTER CONSULTANT phoned patient, . Patient stated that she was doing okay. She has attended her follow up appointment with her PCP and ENT. She does not think she will pursue surgery. She has an appointment with a speech pathologist. She filled her prescriptions and is taking her medications as directed. She plans to have her hip surgery in April when her son can come out to help her. Patient stated she had no other questions or concerns. No further follow up calls needed.
== END 2016-10-11 20:43 | disposition home or self-care (01) | DRG 871 ==
LOC: SED 10:14 → STU 13:12 → SMU 10-10 17:14
PROVIDERS: ADMIT Internal Medicine; ATTEND Internal Medicine
DX: A41.9 Sepsis, unspecified organism (principal); J69.0 Pneumonitis due to inhalation of food and vomit; E43 Unspecified severe protein-calorie malnutrition; E87.1 Hypo-osmolality and hyponatremia; Z68.1 Body mass index [BMI] 19.9 or less, adult; E78.5 Hyperlipidemia, unspecified; M16.11 Unilateral primary osteoarthritis, right hip; M81.0 Age-related osteoporosis without current pathological fracture; K57.90 Diverticulosis of intestine, part unspecified, without perforation or abscess without bleeding; Z96.641 Presence of right artificial hip joint; E06.3 Autoimmune thyroiditis; G89.29 Other chronic pain; R13.10 Dysphagia, unspecified; E55.9 Vitamin D deficiency, unspecified; D64.9 Anemia, unspecified; Z85.850 Personal history of malignant neoplasm of thyroid
CPT/HCPCS: 36415; 70491-TC; 71010; 71260-TC; 76700-TC; 80048; 80053; 81000-TC; 82150-TC; 83605; 83690-TC; 85025; 85610-TC; 85730-TC; 86710; 87040-TC; 93005; 96361; 96365; 96375; 99291; C9113; J0696; J0780; J1885; J1956; J2405; J2543; J7030; Q9967

== ENCOUNTER 2016-10-18 10:52 | Outpatient (CLI) | payer OTHER ==
[2016-10-10 12:12] VITALS: BMI 18.1
[2016-10-18] MEDS ORDERED: BARIUM SULFATE 135 ML SUSP.RECON (E-Z-HD) PO ONE (11:09)
== END 2016-10-18 19:33 | disposition home or self-care (01) ==
LOC: SRD 10:52
PROVIDERS: ATTEND Family Medicine
DX: R13.10 Dysphagia, unspecified (principal)
CPT/HCPCS: 74230; 92611-GN

== ENCOUNTER 2016-10-27 09:28 | Emergency (ER) | payer OTHER ==
[~2016-10-27] VITALS: Ht 165.1 cm; Wt 47.6 kg
[2016-10-27 09:30] VITALS: BP_SYST 163
[2016-10-27] MEDS ORDERED: NACL 0.9% 1,000 ML IV ONE (09:46)
[2016-10-27] MEDS ORDERED: KETOROLAC TROMETHAMINE 30 MG VIAL IVP ONE (10:00)
[2016-10-27 10:13] LABS: BASOPHILS # (AUTO) 0.3 K/uL (0.0-0.2); BASOPHILS % (AUTO) 2.3 % (0.0-2.0); EOSINOPHILS # (AUTO) 0.2 K/uL (0.0-0.4); EOSINOPHILS % (AUTO) 1.4 % (0.0-4.0); HEMATOCRIT 39.5 % (36-48); HEMOGLOBIN 12.9 g/dL (12.0-16.0); LYMPHOCYTES # (AUTO) 1.2 K/uL (1.0-5.5); MEAN CORPUSCULAR HEMOGLOBIN 31 pg (27-31); MEAN CORPUSCULAR HGB CONC 33 % (32-36); MEAN CORPUSCULAR VOLUME 95 fL (79.0-98.0); MONOCYTES # (AUTO) 0.9 K/uL (0.0-1.0); MONOCYTES % (AUTO) 6.1 % (1.7-9.3); NEUTROPHILS # (AUTO) 11.8 K/uL (1.8-7.7); NEUTROPHILS % (AUTO) 82.2 % (40.0-70.0); PLATELET COUNT (AUTO) 283 K/uL (130-430); RED BLOOD CELL COUNT(AUTO) 4.18 MIL/uL (4.2-6.2); RED CELL DISTRIBUTION WIDTH 13.6 % (9.0-15.0); WHITE BLOOD COUNT (AUTO) 14.4 K/uL (4.8-10.8)
[2016-10-27 10:33] LABS: ANION GAP 5 (5-15); CHLORIDE 103 mmol/L (98-107); GLUCOSE 104 mg/dL (70-99); POTASSIUM 4.1 mmol/L (3.5-5.1); SODIUM SERUM 137 mmol/L (136-145)
[2016-10-27 10:34] LABS: ALANINE AMINOTRANSFERASE 17 U/L (12-78); ALBUMIN 2.9 g/dL (3.4-4.8); ASPARTATE AMINOTRANSFERASE 19 U/L (10-37); CALCIUM 8.6 mg/dL (8.4-11.0); CREATININE 1.06 mg/dL (0.55-1.30); TOTAL BILIRUBIN 0.6 mg/dL (0.0-1.0); TOTAL PROTEIN, SERUM 7.2 g/dL (6.4-8.3); UREA NITROGEN, BLOOD 14 mg/dL (8-21)
[2016-10-27 12:48] LABS: BILIRUBIN,URINE NEGATIVE (NEGATIVE); BLOOD, URINE NEGATIVE (NEGATIVE); CLARITY/URINE CLEAR (CLEAR); COLOR,URINE YELLOW (YELLOW); GLUCOSE,URINE NEGATIVE (NEGATIVE); KETONES,URINE NEGATIVE (NEGATIVE); LEUKOCYTE ESTERASE ,URINE NEGATIVE (NEGATIVE); NITRITE, URINE NEGATIVE (NEGATIVE); PROTEIN URINE NEGATIVE (NEGATIVE); UROBILINOGEN,URINE 0.2 (0.2-1.0)
[2016-10-27 16:30] VITALS: BP_SYST 121
== END 2016-10-27 16:30 | disposition home or self-care (01) ==
LOC: SED 09:28
DX: R19.7 Diarrhea, unspecified (principal); E78.5 Hyperlipidemia, unspecified
CPT/HCPCS: 36415; 80053; 81003; 85025; 96361; 96374; 99284; J1885; J7030